=== PATIENT | female | born 1985 | race Caucasian/White ===

== ENCOUNTER 2019-06-28 15:00 | Outpatient (CLI) | payer OTHER ==
[~2019-06-28 15:00] MED LIST: DIAZ2TAB3 PO; FLUT1DIS5 INH; HYDR-4100 PO; LANS30CA53 PO; LEVA1.2526 INH; MET10 PO; METF1000 PO; MONT10TA22 PO; OMEG1CAP55 PO; OXYC-130 PO; PRED20TA PO; PREG75CA PO; TIZA4TAB5 PO; TIZA4TAB6 PO
== END 2019-06-28 20:44 | disposition home or self-care (01) ==
LOC: SCA 15:00
DX: G89.4 Chronic pain syndrome (principal); F11.20 Opioid dependence, uncomplicated
CPT/HCPCS: 36600; 82803-TC